=== PATIENT | female | born 1985 | race Caucasian/White ===

== ENCOUNTER 2020-04-27 05:58 | Day surgery (SDC) | payer MEDICAID ==
[2020-04-21 12:56] LABS: BASOPHILS % (AUTO) 0.5 % (0-1); EOSINOPHILS # (AUTO) 0.1 X10'3 (0-0.9); EOSINOPHILS % (AUTO) 0.7 % (0-6); LYMPHOCYTES # (AUTO) 2.3 X10'3 (1.1-4.8); MEAN CORPUSCULAR HGB CONC 33.4 g/dL (33.0-36.5); MEAN CORPUSCULAR VOLUME 92.8 FL (78-98); MEAN PLATELET VOLUME 7.3 FL (7.4-10.4); MONOCYTES # (AUTO) 0.4 X10'3 (0-0.9); MONOCYTES % (AUTO) 5.1 % (2-12); NEUTROPHILS # (AUTO) 5.9 X10'3 (1.8-7.7); NEUTROPHILS % (AUTO) 67.7 % (42-75); PRE OP HEMATOCRIT 41.2 % (35.0-45.0); PRE OP HEMOGLOBIN 13.8 g/dL (12.0-16.0); PRE OP PLATELET COUNT 297 X10'3 (140-440); RED BLOOD COUNT 4.44 X10'6 (4.20-5.60); RED CELL DISTRIBUTION WIDTH 12.8 % (11.5-14.5)
[2020-04-21 13:09] LABS: HCG SERUM QL NEGATIVE
[2020-04-21 13:20] LABS: ALBUMIN 3.9 G/DL (3.4-5.0); ALBUMIN/GLOBULIN RATIO 1.1 (1.1-1.5); ALKALINE PHOSPHATASE 93 IU/L (46-116); BLOOD UREA NITROGEN 11 MG/DL (7-18); BUN/CREATININE RATIO 10.9 (6.6-38.0); CALCIUM 8.8 MG/DL (8.5-10.1); CHLORIDE 105 MMOL/L (99-107); CREATININE 1.01 MG/DL (0.40-0.90); PRE OP ALT 23 U/L (30-65); PRE OP ANION GAP 9 (8-16); PRE OP AST 19 U/L (10-37); PRE OP BILIRUB, TOTAL 0.7 MG/DL (0.0-1.0); PRE OP GLUCOSE 83 MG/DL (70-104); PRE OP POTASSIUM 3.6 MMOL/L (3.4-5.1); PRE OP SODIUM 139 MMOL/L (135-145); TOTAL CARBON DIOXIDE 24.6 MMOL/L (24-32); TOTAL PROTEIN 7.6 G/DL (6.4-8.2); eGFR 64 ML/MIN
[~2020-04-27] VITALS: Ht 154.9 cm; Wt 61.2 kg
[2020-04-27] VITALS (19 sets, daily range): BP systolic 95–132; BP diastolic 60–92
[~2020-04-27 05:58] MED LIST: NO HOME MEDS; ceFAZolin 1GM/D5W- ADD-VANTAGE 50 ML IV ONE; famotidine 20mg tablet PO ONE; ringers solution, lacted 1,000 ML IV SCH
[2020-04-27] MEDS ORDERED: LIDOcaine 1% (10mg/ml) 2ml vial ONE (06:21)
[2020-04-27] MEDS ORDERED: BUPIVAcaine/PF 2.5mg/ml (0.25%) 10ml vial ONE (06:48)
[2020-04-27] MEDS ORDERED: morphine 2 MG/ML inj. syringe IV PRN (07:05)
[2020-04-27] MEDS ORDERED: hydrALAZINE 20mg/ml inj. IV PRN (07:05)
[2020-04-27] MEDS ORDERED: ringers solution, lacted 1,000 ML IV SCH (07:05)
[2020-04-27] MEDS ORDERED: ondansetron/PF 4mg/2ml inj IV PRN (07:05)
[2020-04-27] MEDS ORDERED: fentaNYL/PF 50MCG/1 ML 2ML syringe IV PRN ×2 (07:05)
[2020-04-27] MEDS ORDERED: labetalol 20mg/4ml (5mg/ml) syringe IV PRN (07:05)
[2020-04-27] MEDS ORDERED: morphine 4 MG/ML inj SYRINge IV PRN (07:05)
[2020-04-27] MEDS ORDERED: LIDOcaine 0.5% (5mg/ml) 50ml vial ONE (07:08)
[2020-04-27] MEDS ORDERED: MIDAZolam 5mg/5ml vial ONE (08:08)
[2020-04-27] MEDS ORDERED: fentaNYL/PF 50MCG/1 ML 2ML syringe ONE (08:08)
[2020-04-27] MEDS ORDERED: propofol inj 20 ML IV ONE (08:40)
--- NOTE | 2020-04-27 09:13 | NUR ---
RECEIVED FROM [facility] VIA [facility] ACCOMPANIED BY ANESTHESIOLOGIST DR LANDA, REPORT GIVEN. PT DROWSY BUT AROUSES EASILY WITH NO COMPLAINT OF PAIN AT THIS TIME. 20 GAUGE PIV R HAND PATENT AND RUNNING LR AT 100 ML/FR. DRESSING L HAND CDI WITH GOOD PPULSES AND CAP REFILL. L UE ELEVATED ON PILLOW AND ICE APPLIED. RESTING COMFORTABLY.
--- NOTE | 2020-04-27 11:53 | NUR ---
PT AWAKE AND ALERT, TOLERATING FLUIDS, ABLE TO DRESS SELF AND AMBULATE, ABLE TO VOID, WITH NO COMPLAINT OF PAIN AT THIS TIME. 20 GAUGE PIV R HAND DC/D CATH TIP INTACT. DRESSING L HAND CDI WITH GOOD PPULSES AND CAP REFILL. VSS. DISCHARGE INSTRUCTIONS GIVEN AND PT VERBALIZED UNDERSTANDING. TRANSPORTED VIA WHEELCHAIR TO SIG OTHER IN PERSONAL VEHICLE TO HOME.
== END 2020-04-27 11:53 | disposition home or self-care (01) ==
LOC: PAS 05:58
PROVIDERS: ATTEND Orthopaedic Surgery Hand Surgery
DX: S63.592A Other specified sprain of left wrist, initial encounter (principal); Z11.59 Encounter for screening for other viral diseases; Z79.899 Other long term (current) drug therapy; X58.XXXA Exposure to other specified factors, initial encounter; Y93.89 Activity, other specified; Y92.89 Other specified places as the place of occurrence of the external cause; Y99.8 Other external cause status
CPT/HCPCS: 29846; 36415; 80053; 82948; 84703; 85025; J0690; J2001; J2250; J2704; J3010; J3490; U0003; A4215; A7000; J7120